=== PATIENT | female | born 1990 | race Caucasian/White ===

== ENCOUNTER → 2018-10-31 | Outpatient (CLI) | payer SELFPAY ==
[2018-10-31 13:17] LABS: CLUE CELLS NOT OBSERVED (Not Observd)
== END ==
LOC: LAB 12:46
PROVIDERS: Nurse Practitioner
DX: N89.8 Other specified noninflammatory disorders of vagina (principal); R30.0 Dysuria
CPT/HCPCS: Q0111

== ENCOUNTER → 2018-12-19 | Outpatient (CLI) | payer SELFPAY | LOC: RAD 10:40 | DX: M79.89 Other specified soft tissue disorders (principal) ==

== ENCOUNTER → 2020-02-21 | Outpatient (CLI) | payer OTHER ==
[2020-02-21 17:00] LABS: CLUE CELLS NOT OBSERVED (Not Observd)
== END ==
LOC: LAB 15:15
PROVIDERS: Nurse Practitioner
DX: N89.8 Other specified noninflammatory disorders of vagina (principal)
CPT/HCPCS: Q0111

== ENCOUNTER → 2021-07-23 | Outpatient (CLI) | payer OTHER | LOC: LAB 17:19 | DX: Z32.01 Encounter for pregnancy test, result positive (principal) ==

== ENCOUNTER → 2021-09-04 | Outpatient (CLI) | payer OTHER ==
[2021-09-04 16:17] LABS: URINE APPEARANCE CLEAR; URINE BILIRUBIN NEGATIVE (NEGATIVE); URINE BLOOD NEGATIVE (NEGATIVE); URINE COLOR YELLOW; URINE GLUCOSE NEGATIVE (NEGATIVE); URINE KETONE NEGATIVE (NEGATIVE); URINE NITRATE NEGATIVE (NEGATIVE); URINE PROTEIN(semi-quant) NEGATIVE (NEGATIVE); URINE UROBILINOGEN NORMAL (NORMAL)
[2021-09-04 16:18] LABS: URINE LEUKOCYTE ESTERASE TRACE (NEGATIVE); URINE MUCUS PRESENT (NOT PRESENT); URINE WBC 0-1 /hpf (0-3)
== END ==
LOC: LAB 13:35
DX: O36.80X0 Pregnancy with inconclusive fetal viability, not applicable or unspecified (principal); Z3A.00 Weeks of gestation of pregnancy not specified

== ENCOUNTER 2022-04-09 20:21 | Emergency (ER) | payer OTHER ==
[~2022-04-09] VITALS: Ht 170.2 cm; Wt 107.3 kg
[2022-04-09] MEDS ORDERED: ASPERCREME1 EACH TP (20:36)
[2022-04-09] MEDS ORDERED: EPITOL200 MG PO (20:37)
[2022-04-09] MEDS ORDERED: VAZALORE81 MG PO (20:37)
[2022-04-09] MEDS ORDERED: IRON90 MG PO (20:37)
[2022-04-09 23:15] VITALS: BP 115/104
== END 2022-04-09 23:20 | disposition home or self-care (01) ==
LOC: ED 20:21
DX: S52.602A Unspecified fracture of lower end of left ulna, initial encounter for closed fracture (principal); Z28.310 Unvaccinated for COVID-19; W01.0XXA Fall on same level from slipping, tripping and stumbling without subsequent striking against object, initial encounter

== ENCOUNTER → 2022-05-25 | Outpatient (CLI) | payer OTHER ==
[~2022-05-25] MED LIST: ASPERCREME1 EACH TP; EPITOL200 MG PO; IRON90 MG PO; VAZALORE81 MG PO
== END ==
LOC: RAD 11:40
DX: S62.92XD Unspecified fracture of left hand, subsequent encounter for fracture with routine healing (principal); X58.XXXD Exposure to other specified factors, subsequent encounter

== ENCOUNTER → 2023-09-14 | Outpatient (CLI) | payer OTHER ==
[~2023-09-14] MED LIST changes: +AMOXIL500 M1 PO; +KETOROLAC10 MG PO; +PREDNISONE20 MG PO; +TIZANIDINE HYDRO2 M1 PO
== END ==
LOC: LAB 12:00
DX: Z13.1 Encounter for screening for diabetes mellitus (principal); F53.0 Postpartum depression

== ENCOUNTER 2024-01-16 16:25 | Emergency (ER) | payer OTHER ==
[~2024-01-16] VITALS: Ht 170.2 cm; Wt 109.1 kg
[2024-01-16 16:59] LABS: URINE WBC 0 /hpf (0-3)
[2024-01-16 17:03] LABS: URINE APPEARANCE CLEAR (CLEAR); URINE COLOR YELLOW (YELLOW)
[2024-01-16 17:05] LABS: URINE BILIRUBIN NEGATIVE (NEGATIVE); URINE BLOOD NEGATIVE (NEGATIVE); URINE GLUCOSE NEGATIVE (NEGATIVE); URINE KETONE NEGATIVE (NEGATIVE); URINE LEUKOCYTE ESTERASE NEGATIVE (NEGATIVE); URINE NITRATE NEGATIVE (NEGATIVE); URINE PROTEIN(semi-quant) NEGATIVE (NEGATIVE)
[2024-01-16 17:56] VITALS: BP 122/76
== END 2024-01-16 17:50 | disposition home or self-care (01) ==
LOC: ED 16:25
PROVIDERS: Nurse Practitioner Family
DX: N32.89 Other specified disorders of bladder (principal)
CPT/HCPCS: A4314

== ENCOUNTER → 2024-06-21 | Outpatient (CLI) | payer OTHER | LOC: RAD 12:11 | DX: R06.00 Dyspnea, unspecified (principal) ==